=== PATIENT | female | born 1995 ===

== ENCOUNTER 2017-03-13 12:37 | Emergency (ER) | payer SELFPAY | END 2017-03-13 12:56 | disposition left against medical advice (07) | LOC: UCEAST 12:37 | DX: K31.9 Disease of stomach and duodenum, unspecified (principal); Z53.21 Procedure and treatment not carried out due to patient leaving prior to being seen by health care provider ==

== ENCOUNTER 2018-10-01 08:08 | Inpatient (IN) | payer MEDICAID ==
[2018-10-01] MEDS ORDERED: LORazepam INJ* 2 MG/ML 1 ML VIAL ONE (08:53)
--- NOTE | 2018-10-01 08:59 | ED ---
Psychiatric Complaint - HPI Summary HPI Summary: This patient is a 22 year old female presenting to [facility] with a chief complaint of altered mental status reported by her aunt and uncle accompanying her. They state that she is not acting her normal self. They state the patient is acting confused and not responding appropriately. They state the pt is fearful of demons. They also state that pt has not been sleeping. The patient is uncooperative in the ED and keeps asking how long she will be here. She is being seen in the conference room and refuses to enter the patient room in the main ED. She says "I want water here" in the waiting room and does not want to go to the patient room with water. She has ripped off her name alex multiple times. When explaining simple directives she states "What are you talking about?". Patient "wasn't ready" and resisted going to her room. The patient denies any medical or surgical Hx. Her aunt states she states she was talking non-stop last night, and states there was a demon and she was trying to get it out. She repeatedly was stating "I am not going to kill myself". She was referring to herself as "Us". Patient became agitated. Two nurses, two security members, an senior service technician, and Dr. Mancini all attempted to get pt to the ED room. Pt attempted to elope several times. Pt was aggressive and calling staff names. Pt was carried to the ED room, where she was medicated for her safety and staff's safety. Pt's aunt states the patient's mother has a Hx of schizophrenia but the patient has never had an episode before. Patient will be placed on 1:1 arm's reach watch. Patient is an elopement risk. LEVEL 5 Caveat: HPI Limited due to patient altered mental status. - History Of Current Complaint Chief Complaint: EDMentalHealth Hx Obtained From: Patient, Family/Manager Real Estate - aunt and uncle Onset/Duration: Gradual Onset Timing: Constant Severity Initially: Severe Severity Currently: Severe Character: Manic, Fearful, Anxious Aggravating Factor(s): Recent Stress - relationship break up Alleviating Factor(s): Nothing Associated Signs And Symptoms: Positive: Hostile - at times to staff, Confused, Hallucinating - seeing demons - Allergies/Home Medications Allergies/Adverse Reactions: Allergies Allergy/AdvReac Type Severity Reaction Status Date / Time No Known Allergies Allergy Verified 10/01/18 08:16 PMH/Surg Hx/FS Hx/Imm Hx Previously Healthy: Yes - Surgical History Surgical History: None Infectious Disease History: No Infectious Disease History: Denies: Traveled Outside the [place] in Last 30 Days - Family History Known Family History: Positive: Other - Schizophrenia, mother Negative: Cardiac Disease, Hypertension, Diabetes - Social History Alcohol Use: None Substance Use Type: Reports: None Smoking Status (MU): Never Smoked Tobacco - Additional Comments History Additional Comments: LEVEL 5 Caveat: PMH Limited due to patient altered mental status. Review of Systems Constitutional: Negative Cardiovascular: Negative Respiratory: Negative Gastrointestinal: Negative Positive: no symptoms reported Skin: Negative Neurological: Negative Positive: Other - agitated, asks repeated questions, attempts to elope, All Other Systems Reviewed And Are Negative: No - Comments Additional Review of Systems Comments: LEVEL 5 Caveat: ROS Limited due to patient altered mental status. Physical Exam - Summary Physical Exam Summary: Appearance: Well-appearing, no pain distress, well-nourished Skin: Warm, color reflects adequate perfusion, dry Head: Normal Head/Face inspection, atraumatic Eyes: Conjunctiva clear, pupils midpoint, EOMI, no nystagmus ENT: Normal inspection Neck: Supple, no nodes, no JVD Respiratory: Lungs clear, normal breath sounds, no respiratory distress Cardio: RRR, No murmur, pulses normal, brisk capillary refill Abdomen: Soft, nontender Bowel sounds: Present Musculoskeletal: Strength Intact/ROM intact, no calf tenderness, no edema. Psychological: Poor eye contact, asks repetitive questions. Neuro: Alert, muscle tone normal, no focal deficit, normal gait Triage Information Reviewed: Yes Vital Signs On Initial Exam: Initial Vitals Temp Pulse Resp BP Pulse Ox 99.0 F 100 16 130/88 99 10/01/18 08:10 10/01/18 08:10 10/01/18 08:10 10/01/18 08:10 10/01/18 08:10 Vital Signs Reviewed: Yes Completion Of Physical Exam Limited Due To: Altered Mental Status, Level 5 Diagnostics - Vital Signs Vital Signs Temp Pulse Resp BP Pulse Ox 10/01/18 08:10 99.0 F 100 16 130/88 99 - Laboratory Result Diagrams: 10/08/18 08:32 10/08/18 08:32 Lab Statement: Any lab studies that have been ordered have been reviewed, and results considered in the medical decision making process. Re-Evaluation - Re-Evaluation First Eval Re-Evaluation Time: 09:30 Change: Unchanged Comment: Pt given Geodon 20mg and Ativan 2mg IM for combative behavior, attempting to jump out of bed. Second Eval Re-Evaluation Time: 10:10 Change: Improved Comment: Pt sleeping and appears to be in no distress. 1:1 arm's reach watch remains in place. Course/Dx - Course Course Of Treatment: This patient is a 22 year old female presenting to [facility] with a chief complaint of altered mental status per her aunt and uncle. Pt hasn' t slept in days and is fearful of demons. Pt was disruptive, aggressive and uncooperative in the ED, requiring several staff members and Dr. Mancini to keep her safe, and keep her from eloping. Pt was given Geodon 20mg IM and Lorazepam 2mg IM and ultimately fell asleep. Mental health evaluation was completed by VIC Trujillo to the best of her ability, who discussed pt with Dr. Forrest. At 0959 papers signed for 39 admission, involutary, per Dr. Forrest with a diagnosis of mood disorder and acute psychosis. Note: for pt and staff safety, pt was taken directly to [facility] prior to labs being drawn, so the lab statement should read that "any labs that are resulted (not ordered) have been reviewed." In this young, otherwise healthy woman, no labs were considered necessary in order to medically clear her to go the the [facility]. - Differential Dx/Clinical Impression Differential Diagnosis/HQI/PQRI: Positive: Acute Psychosis, Bipolar Disorder, Schizophrenia Provider Diagnosis: Mood disorder, Acute psychosis - Physician Notifications Discussed Care Of Patient With: Sobeida Forrest - car Trujillo RN Instructed by Provider To: Admit As Inpatient - 9.39 - Critical Care Time Critical Care Time: 30-74 min - 45 minutes Discharge ED - Sign-Out/Discharge Documenting (check all that apply): Patient Departure - Admission to [facility] - Discharge Plan Condition: Improved Disposition: [place]IATRIC [place]AC[place] [place]illing Disposition and Condition Condition: IMPROVED Disposition: Psychiatric Facility [facility] [place] - Attestation Statements Document Initiated by Scribe: Yes Documenting Scribe: Alberto Samayoa Provider For Whom Scribe is Documenting (Include Credential): Diane Mancini MD Scribe Attestation: IAlberto, scribed for Diane Mancini MD on 11/01/18 at 2134. Scribe Documentation Reviewed: Yes Provider Attestation: The documentation as recorded by the [email or web address] amin accurately reflects the service I personally performed and the decisions made by me, Diane Mancini MD Status of Scribe Document: Viewed
[2018-10-01] MEDS ORDERED: LORazepam INJ* 2 MG/ML 1 ML VIAL IM ONE (09:03)
[2018-10-01] MEDS ORDERED: Ziprasidone IM INJ* 20 MG/ML VIAL IM ONE (09:03)
[2018-10-01] MEDS ORDERED: Sterile Water for Inj* 10 ML ONE (09:17)
[2018-10-01] MEDS ORDERED: Al Hydrox/Mg Hydrox/Simet LIQ* 30 ML UDC PO PRN (12:10)
[2018-10-01] MEDS ORDERED: D5W IVPB SCH ×2 (15:00)
[2018-10-01] MEDS ORDERED: POTASSIUM CHLORIDE TPN IVPB SCH ×2 (15:00)
[2018-10-01] MEDS ORDERED: 1/2 NS IVPB SCH ×2 (15:00)
--- NOTE | 2018-10-01 16:03 | HP ---
HISTORY AND PHYSICAL: DATE OF ADMISSION: 10/01/18 IDENTIFYING DATA: Antonia is a 22-year-old single female, unknown to us and [facility], was brought into the emergency room by her aunt and aunt's due to sudden change in her mental status. CHIEF COMPLAINT: "The patient is unable to verbalize anything due to deep sedation; however, she was extremely agitated, paranoid, and aggressive in the emergency room." HISTORY OF PRESENT ILLNESS: This 22-year-old female with no known history of treatment in the past c hugh to the emergency room accompanied by her aunt and uncle due to a sudden change in her mental stat us ranging from being confused, agitated to aggressive. At the time of evaluation, she was extremely sedated from her stat medication that she received in the emergency room, but the review of ED repor t indicates that the patient was acting confused on responding to some unseen stimuli. She was very fearful to come into the emergency room, in her room rather stayed outside in the waiting area. She was very fearful to go inside because of the demons in there. Her aunt and uncle also reported the s hugh thing that for the last 3 nights Antonia was not sleeping, rather fighting with the demons and tryi ng to get them out of the house. She was doing exactly the same thing in the emergency room. At one point, ED doctor had to give her 2 mg of lorazepam and 20 of Geodon IM to control her agitation and aggression. At this point, she is deeply sedated. We did try to get her vital signs, but she would n ot allow. Finally, the vital signs were taken, which appears to be low blood pressure. Her blood pr essure at this time is 83/58; pulse rate varies from 75 to 110, breathing shallow, but normal; temper ature 98.2; O2 sat 99% on room air. Hospitalist, Dr. Salazar, was called. He advised to repeat the v ital signs, which we did and did not have much difference except for her pulse rate went up. I also called the lab to see if they have the blood. They said they did not have the blood, so they are on their way to obtain blood and urine and other labs that were ordered in the emergency room. According to the patient's aunt and uncle, Antonia broke up with her boyfriend of 3 years and moved out of the a partment in the recent past and since then there was a change in her mental status. Rest of the hist ory is unavailable because the patient is unable to provide any history and there are no family membe rs available; however, collateral information from aunt and uncle indicates that a month ago Antonia sa id that she feels spirits around her and relatives as well. Other than that, there is not m uch of the psychiatric history. FAMILY HISTORY: Again, from collaterals is that the patient's mother has a history of schizophrenia and has been hospitalized for the same reason at [facility] for 3 months. She was als o admitted in other hospitals that we do not know. She was once hospitalized in [place] where she im migrated for 10 years. Antonia's father had anger management problem and marital discord when Antonia an d her younger sister were younger. The relationship has been estranged until recently when they bega n speaking again. PSYCHOSOCIAL HISTORY: The patient immigrated to [place] 10 years ago with her family. The patient a nd her sister were removed from their parents' house when they were younger. Per aunt, Antonia was [place] marg[place] with her and her , Davie and the sister, Stacia, resided with her biological father bechristina ore DSS removed them from the house due to neglect from the mother due to her own mental health probl ems. 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 IMPRESSION AND PLAN: Again, these are all collateral information and her attending psychiatrist or s omeone on the team will have to obtain detailed information when the patient is capable of providing it. At this time, my decision is to continue her in the inpatient setting, continue her on one-on-on e status and keep working with the hospitalist to tackle her low blood pressure, which could be relat ed to stat medication in the emergency room. Rest of the treatment will be on as-needed basis and wi ll be deferred to her assigned attending on the unit. In the meantime, we will provide her with supp ortive milieu, individual, and group therapy as she tolerates. Her code status will remain full. [id number]/CPS #: [id number]
[2018-10-02] MEDS: Vitamin THERAPEUTIC TAB PO SCH (08:53)
[2018-10-02 10:21] LABS: Urine Appearance Clear; Urine Bacteria Absent (Absent); Urine Bilirubin Negative (Negative); Urine Blood 1+ (Negative); Urine Color Yellow; Urine Glucose Negative (Negative); Urine Ketones Trace (Negative); Urine Nitrite Negative (Negative); Urine Protein Negative (Negative); Urine Red Blood Cell Absent (Absent); Urine Specific Gravity 1.011 (1.010-1.030); Urine Squamous Epithelial Cell Present (Absent); Urine Urobilinogen Negative (Negative); Urine White Blood Cell Absent (Absent)
[2018-10-02 10:29] LABS: Urine Benzodiazepine Screen None Detected (None Detect); Urine Opiates Screen None Detected (None Detect)
[2018-10-02] MEDS ORDERED: QUEtiapine TAB* 25 MG PO ONE (18:00)
[2018-10-02] MEDS ORDERED: QUEtiapine TAB* 25 MG PO SCH (21:00)
[2018-10-03] MEDS ORDERED: OLANzapine TAB* 5 MG PO ONE ×2 (08:51→09:57)
[2018-10-03] MEDS ORDERED: OLANzapine TAB* 5 MG ONE (09:44)
[2018-10-03] MEDS: Vitamin THERAPEUTIC TAB PO SCH (10:29)
--- NOTE | 2018-10-03 16:14 | PN ---
Subjective - Subjective Date of Service: 10/03/18 Service Type: 08230 Hosp care 35 min high complexity Subjective: This is the first time I meet with Antonia. She is psychotic: hallucinating words in her head that she is not sure if she really spoke and is delusional, believing that she will , that we might kill her, and that she is behaving like a bad person. She, this morning, was terrified and anxious. She stayed in her room for the most part and paced around it bouncing a ball. She was given Zyprexa 5 mg x2 and didn't sleep, but did calm down and felt more "like myself. " Tonia Herzog, W[employer]IT [employer] CONDITIONING [employer]CH[employer]IC, and I meet with Antonia and two of her aunts. Antonia paces around when she can no longer tolerate talking. She skips at times and then returns to the table. She writes notes to herself in her book that are affirming and supportive, although the statements are rambling; nevertheless, they are positive and she recognizes them to be so. Her aunts are quite upset as this is not how Antonia typically behaves. They do not know how long she has been decompensating, but notes from her journal indicate that it's been at least a month. Her mother, Mercedez, also visited and was concerned for her wellbeing. Objective - General Observations Appearance: Disheveled Appears Stated Age: Yes Stature: WNL Posture: WNL Eye Contact: Intermittent Behavior/Activity: Accelerated, Peculiar, Impulsive, Agitated - Interaction Observations Attitude Towards Examiner: Confused, Mistrustful Stated Mood: Dysphoric, Anxious Affect: Labile Speech Pattern/Tone: Clear Thought Process: Disorganized, Tangential, Filght of Ideas Perception: WNL Thought Content: Preoccupation/Ruminations, Paranoid Hallucination Type: Auditory Delusion Type: Thought Broadcasting, Reference, Somatic - Cognitive Function Orientation: Person, Place, Time Level of Consciousness: Awake, Alert Cognition: Impaired Attention/Concentration, Impaired Ability to Abstract Estimated Intelligence: Normal Insight: Difficulty Acknowledging Presence of Psyciatric Problems Judgment Within Normal Limits: No Ability to Make Reasonable Decisions: Serverely Impaired - Medication Compliance Cooperative with Inpatient Medication Regimen: Yes - Group Participation Participates in Group Activities: Partial Assessment - Assessment Merits Inpatient Hospitalization: For Immediate Safety Clinical Impression: Antonia is a 22-year-old single white woman with no history of psychiatric problems but is clearly psychotic at this time who came to the hospital after presenting to her aunt and uncle in a fashion she never has before: speaking nonsense and screaming "negative" things. Plan - Plan Treatment Plan: Name: ANTONIA VARGAS Birthdate: 1995 [id number] We will start Zyprexa for now and potentially transition her to Abilify injection in the future. The priority now is to get her rest and reduce the psychosis. We will continue to monitor her mood and behavior and work with her family. Continued Medication Management: Different Medication Medications: Current Medications Acetaminophen (Tylenol Tab*) 650 mg PO Q4H PRN PRN Reason: PAIN or TEMP > 101 F Al Hydrox/Mg Hydrox/Simethicone (Maalox Plus*) 30 ml PO Q4H PRN PRN Reason: INDIGESTION Multivitamins (Theragran Tab*) 1 tab PO DAILY [facility] Last Admin: 10/03/18 10:29 Dose: Not Given Olanzapine (Zyprexa Tab*) 10 mg PO BEDTIME [facility] Olanzapine (Zyprexa Tab*) 5 mg PO Q6H [facility] - Discharge Plan Discharge Plan: Outpatient Follow Up
[2018-10-03] MEDS: OLANzapine TAB* 10 MG PO SCH (21:36)
[2018-10-04] MEDS: OLANzapine TAB* 10 MG PO SCH ×2 (03:34→22:00)
[2018-10-04] MEDS: OLANzapine TAB* 5 MG PO SCH ×4 (03:36→11:05)
[2018-10-04] MEDS: Vitamin THERAPEUTIC TAB PO SCH (08:38)
--- NOTE | 2018-10-04 15:12 | PN ---
Subjective - Subjective Date of Service: 10/04/18 Service Type: 79277 Hosp care 25 min moderate complexity Subjective: Antonia has been in better control today, not talking about demons and seemingly free of hallucinations. She is no longer willing to take medication, however, and that is problematic. Antonia has responded well to Zyprexa. She has taken 3-4 doses of it in either 5 or 10 mg doses. She did sleep 7 hours last night and awoke in a more cheerful mood. She is manic, not being able to sit for long periods of time and skipping around the room from time to time. She has no insight into the bizarre nature of her behavior or beliefs and is defensive when discussing treatment. She is not enthusiastic about being in the hospital, stating that she doesn't feel safe here, while at the same time not being motivated enough by potential discharge to take ordered medications. Treatment over objection must be considered. Objective - General Observations Appearance: Disheveled Appears Stated Age: Yes Stature: WNL Posture: WNL Eye Contact: Intense Behavior/Activity: Accelerated, Peculiar, Impulsive - Interaction Observations Attitude Towards Examiner: Confused, Mistrustful Affect: Labile Speech Pattern/Tone: Clear, Rambling Thought Process: Disorganized, Circumstantial Perception: WNL Thought Content: Preoccupation/Ruminations, Paranoid Hallucination Type: Denies, Auditory Delusion Type: Denies, Persecution, Somatic - Cognitive Function Orientation: Person, Place, Time Level of Consciousness: Awake, Alert, Appropriate Cognition: Impaired Cognition, Impaired Attention/Concentration Estimated Intelligence: Normal Insight: Difficulty Acknowledging Presence of Psyciatric Problems Judgment Within Normal Limits: No Ability to Make Reasonable Decisions: Serverely Impaired - Medication Compliance Cooperative with Inpatient Medication Regimen: No - Group Participation Participates in Group Activities: Partial Assessment - Assessment Merits Inpatient Hospitalization: For Immediate Safety Clinical Impression: Antonia is a 22-year-old single white woman with no history of psychiatric problems but is clearly psychotic at this time who came to the hospital after presenting to her aunt and uncle in a fashion she never has before: speaking nonsense and screaming "negative" things. Plan - Plan Treatment Plan: Name: ANTONIA VARGAS Birthdate: 1995 [id number] We will start Zyprexa for now and potentially transition her to Abilify injection in the future. The priority now is to get her rest and reduce the psychosis. We will continue to monitor her mood and behavior and work with her family. 10/04/18 Increase dose of PRN Zyprexa and add Ativan to PRNs. Continued Medication Management: Different Medication Medications: Current Medications Acetaminophen (Tylenol Tab*) 650 mg PO Q4H PRN PRN Reason: PAIN or TEMP > 101 F Al Hydrox/Mg Hydrox/Simethicone (Maalox Plus*) 30 ml PO Q4H PRN PRN Reason: INDIGESTION Lorazepam (Ativan Tab(*)) 1 mg PO Q4H PRN PRN Reason: ANXIETY Multivitamins (Theragran Tab*) 1 tab PO DAILY [facility] Last Admin: 10/04/18 08:38 Dose: Not Given Olanzapine (Zyprexa Tab*) 10 mg PO BEDTIME [facility] Last Admin: 10/04/18 03:34 Dose: Not Given Olanzapine (Zyprexa Tab*) 10 mg PO Q6H PRN PRN Reason: AGITATION/ANXIETY
[2018-10-05] MEDS: Vitamin THERAPEUTIC TAB PO SCH (08:20)
[2018-10-05] MEDS: OLANzapine TAB* 10 MG PO PRN ×2 (09:50→18:47)
--- NOTE | 2018-10-05 14:58 | PN ---
Subjective - Subjective Date of Service: 10/05/18 Service Type: 65915 Hosp care 25 min moderate complexity Subjective: Antonia was unable to engage in any productive conversation today. She repeated herself over and over and tried to decide if she had sexually assaulted herself. She is unable to comprehend answers to her repetitive questions. She did receive PRN Zyprexa and a few hours later went to sleep. She continues to require constant observation. This morning, she went from laughing and skipping to sobbing loudly and curling into a position. She requires nearly constant reassurances. We are pursuing treatment over objection and changing her status to 2PC. Objective - General Observations Appearance: Disheveled Appears Stated Age: Yes Stature: WNL Posture: WNL Eye Contact: Intense Behavior/Activity: Peculiar, Impulsive, Agitated - Interaction Observations Attitude Towards Examiner: Anxious, Confused, Mistrustful Stated Mood: Dysphoric, Anxious Affect: Labile Speech Pattern/Tone: Clear, Rambling, Excessive, Pressured, Perseverating, Loud Volume Thought Process: Incoherent, Disorganized, Tangential, Racing Perception: WNL Thought Content: Paranoid, Phobic Thought Process: Lethality: Paranoid Ideation Hallucination Type: Auditory Delusion Type: Persecution, Reference - Cognitive Function Orientation: A&O x 4, Person, Place, Time, Situation Level of Consciousness: Awake, Alert Cognition: Impaired Cognition, Impaired Attention/Concentration Estimated Intelligence: Normal Insight: Difficulty Acknowledging Presence of Psyciatric Problems Judgment Within Normal Limits: No Ability to Make Reasonable Decisions: Serverely Impaired - Medication Compliance Cooperative with Inpatient Medication Regimen: No - Group Participation Participates in Group Activities: No Assessment - Assessment Merits Inpatient Hospitalization: For Immediate Safety Clinical Impression: Antonia is a 22-year-old single white woman with no history of psychiatric problems but is clearly psychotic at this time who came to the hospital after presenting to her aunt and uncle in a fashion she never has before: speaking nonsense and screaming "negative" things. Plan - Plan Treatment Plan: Name: ANTONIA VARGAS Birthdate: 1995 [id number] We will start Zyprexa for now and potentially transition her to Abilify injection in the future. The priority now is to get her rest and reduce the psychosis. We will continue to monitor her mood and behavior and work with her family. 10/04/18 Increase dose of PRN Zyprexa and add Ativan to PRNs. 10/05/18 Pursue treatment over objection and 2PC status Continued Medication Management: Different Medication Medications: Current Medications Acetaminophen (Tylenol Tab*) 650 mg PO Q4H PRN PRN Reason: PAIN or TEMP > 101 F Al Hydrox/Mg Hydrox/Simethicone (Maalox Plus*) 30 ml PO Q4H PRN PRN Reason: INDIGESTION Lorazepam (Ativan Tab(*)) 1 mg PO Q4H PRN PRN Reason: ANXIETY Multivitamins (Theragran Tab*) 1 tab PO DAILY [facility] Last Admin: 10/05/18 08:20 Dose: Not Given Olanzapine (Zyprexa Tab*) 10 mg PO BEDTIME [facility] Last Admin: 10/04/18 22:00 Dose: Not Given Olanzapine (Zyprexa Tab*) 10 mg PO Q6H PRN PRN Reason: AGITATION/ANXIETY Last Admin: 10/05/18 09:50 Dose: 10 mg
[2018-10-05] MEDS: LORazepam TAB(*) 1 MG PO PRN (16:01)
[2018-10-05] MEDS: OLANzapine TAB* 10 MG PO SCH (23:00)
[2018-10-06] MEDS: LORazepam TAB(*) 1 MG PO PRN (06:40)
[2018-10-06] MEDS: Vitamin THERAPEUTIC TAB PO SCH (10:28)
[2018-10-06] MEDS: OLANzapine TAB* 10 MG PO PRN ×2 (10:53→18:19)
--- NOTE | 2018-10-06 16:31 | PN ---
Subjective - Subjective Date of Service: 10/06/18 Service Type: [id number] Hosp care 15 min low complexity Subjective: Antonia spent most of today sleeping. While in many cases this would be unreasonable, Antonia had not slept in 36 hours and was disorganized and severely distressed due to not being able to believe she was safe in the hospital. Her resting will be helpful to her improving. Treatment over objection hearing has been scheduled for 10/07/18 at 10:30. Objective - General Observations Appearance: Disheveled Appears Stated Age: Yes Stature: WNL Posture: WNL Behavior/Activity: WNL - Cognitive Function Level of Consciousness: Drowsy Estimated Intelligence: Normal Insight: Difficulty Acknowledging Presence of Psyciatric Problems Assessment - Assessment Merits Inpatient Hospitalization: For Immediate Safety, Diagnosis Determination Clinical Impression: Antonia is a 22-year-old single white woman with no history of psychiatric problems but is clearly psychotic at this time who came to the hospital after presenting to her aunt and uncle in a fashion she never has before: speaking nonsense and screaming "negative" things. She has remained disorganized and unable to be reassured. Plan - Plan Treatment Plan: Name: ANTONIA VARGAS Birthdate: 1995 [id number] We will start Zyprexa for now and potentially transition her to Abilify injection in the future. The priority now is to get her rest and reduce the psychosis. We will continue to monitor her mood and behavior and work with her family. 10/04/18 Increase dose of PRN Zyprexa and add Ativan to PRNs. 10/05/18 Pursue treatment over objection and 2PC status 10/06/18 Add Abilify to morning medications in plan to inject with Aristada should treatment over objection be obtained. Medications: Current Medications Acetaminophen (Tylenol Tab*) 650 mg PO Q4H PRN PRN Reason: PAIN or TEMP > 101 F Al Hydrox/Mg Hydrox/Simethicone (Maalox Plus*) 30 ml PO Q4H PRN PRN Reason: INDIGESTION Aripiprazole (Abilify Tab*) 5 mg PO DAILY [facility] Lorazepam (Ativan Tab(*)) 1 mg PO Q4H PRN PRN Reason: ANXIETY Last Admin: 10/06/18 06:40 Dose: 1 mg Multivitamins (Theragran Tab*) 1 tab PO DAILY ROSALVA Last Admin: 10/06/18 10:28 Dose: Not Given Olanzapine (Zyprexa Tab*) 10 mg PO BEDTIME ROSALVA Last Admin: 10/05/18 23:00 Dose: Not Given Olanzapine (Zyprexa Tab*) 10 mg PO Q6H PRN PRN Reason: AGITATION/ANXIETY Last Admin: 10/06/18 10:53 Dose: 10 mg
[2018-10-06] MEDS: OLANzapine TAB* 10 MG PO SCH (21:12)
[2018-10-07] MEDS: Vitamin THERAPEUTIC TAB PO SCH (08:23)
[2018-10-07] MEDS ORDERED: ARIPiprazole TAB* 5 MG PO SCH (09:00)
--- NOTE | 2018-10-07 19:23 | PN ---
Subjective - Subjective Date of Service: 10/07/18 Service Type: [id number] Hosp care 15 min low complexity Subjective: Antonia's case went to the court today and the hospital won the right to treatment over objection. Antonia did not attend court. Antonia remaiined difficult to console and she was not able to be convinced that she would be safe in the hospital. She did advocate to be released. She remains disorganized and continues to require close monitoring and near constant reassurance. Objective - General Observations Appearance: Disheveled Appears Stated Age: Yes Stature: WNL Posture: WNL Eye Contact: Intense Behavior/Activity: Peculiar, Impulsive, Agitated - Interaction Observations Attitude Towards Examiner: Anxious, Confused Stated Mood: Dysphoric, Anxious Affect: Labile Speech Pattern/Tone: Clear Thought Process: Disorganized Perception: WNL Thought Content: Paranoid Thought Process: Lethality: Paranoid Ideation Hallucination Type: Auditory Delusion Type: Persecution - Cognitive Function Orientation: Person, Place, Time Level of Consciousness: Awake, Alert Cognition: Impaired Attention/Concentration Estimated Intelligence: Normal Insight: Difficulty Acknowledging Presence of Psyciatric Problems Judgment Within Normal Limits: Yes Ability to Make Reasonable Decisions: Serverely Impaired - Medication Compliance Cooperative with Inpatient Medication Regimen: Partial - Group Participation Participates in Group Activities: Partial Assessment - Assessment Merits Inpatient Hospitalization: For Immediate Safety Clinical Impression: Antonia is a 22-year-old single white woman with no history of psychiatric problems but is clearly psychotic at this time who came to the hospital after presenting to her aunt and uncle in a fashion she never has before: speaking nonsense and screaming "negative" things. She has remained disorganized and unable to be reassured. Plan - Plan Treatment Plan: Name: ANTONIA VARGAS Birthdate: 1995 [id number] We will start Zyprexa for now and potentially transition her to Abilify injection in the future. The priority now is to get her rest and reduce the psychosis. We will continue to monitor her mood and behavior and work with her family. 10/04/18 Increase dose of PRN Zyprexa and add Ativan to PRNs. 10/05/18 Pursue treatment over objection and 2PC status 10/06/18 Add Abilify to morning medications in plan to inject with Aristada should treatment over objection be obtained. 10/07/18 Use TOO to administer Initio, Aristada 882, and 30 mg of aripiprazole. Obtain test before administration of aripiprazole products. Continued Medication Management: Different Medication Medications: Current Medications Acetaminophen (Tylenol Tab*) 650 mg PO Q4H PRN PRN Reason: PAIN or TEMP > 101 F Al Hydrox/Mg Hydrox/Simethicone (Maalox Plus*) 30 ml PO Q4H PRN PRN Reason: INDIGESTION Lorazepam (Ativan Tab(*)) 1 mg PO Q4H PRN PRN Reason: ANXIETY Last Admin: 10/06/18 06:40 Dose: 1 mg Multivitamins (Theragran Tab*) 1 tab PO DAILY ROSALVA Last Admin: 10/07/18 08:23 Dose: Not Given Olanzapine (Zyprexa Tab*) 10 mg PO Q6H PRN PRN Reason: AGITATION/ANXIETY Last Admin: 10/06/18 18:19 Dose: 10 mg
[2018-10-08 08:39] LABS: ABS Basophils 0.1 10^3/ul (0-0.2); ABS Eosinophils 0.1 10^3/ul (0-0.6); ABS Lymphocytes 1.8 10^3/ul (1.0-4.8); ABS Monocytes 0.3 10^3/ul (0-0.8); ABS Neutrophils 6.6 10^3/ul (1.5-7.7); Eosinophil % 1.1 %; Hematocrit 40 % (35-47); Hemoglobin 13.2 g/dL (12.0-16.0); Lymphocyte % 20.3 %; Mean Corpuscular HGB Conc 33 g/dL (31-36); Mean Corpuscular Hemoglobin 27 pg (27-31); Mean Corpuscular Volume 81 fL (80-97); Mean Platelet Volume 8.8 fL (7.4-10.4); Platelet Count 312 10^3/uL (150-450); Red Blood Count 4.94 10^6 /uL (3.70-4.87); Red Cell Distribution Width 15 % (10-15); White Blood Count 8.9 10^3/uL (3.5-10.8)
[2018-10-08 08:56] LABS: ALT 13 U/L (7-52); AST 15 U/L (13-39); Albumin 4.5 g/dL (3.2-5.2); Albumin/Globulin Ratio 1.6 (1-3); Alkaline Phosphatase 56 U/L (34-104); Anion Gap 7 mmol/L (2-11); BUN/Creatinine Ratio 16.4 (8-20); Blood Urea Nitrogen 12 mg/dL (6-24); CO2 Carbon Dioxide 25 mmol/L (22-32); Calcium 9.4 mg/dL (8.6-10.3); Chloride 107 mmol/L (101-111); Cholesterol 133 mg/dL; EGFR Non-African American 101.6 (>60); Globulin 2.8 g/dL (2-4); Glucose 103 mg/dL (70-100); LDL Cholesterol 58 mg/dL; Potassium 3.9 mmol/L (3.5-5.0); Sodium 139 mmol/L (135-145); Total Protein 7.3 g/dL (6.4-8.9); Triglycerides 51 mg/dL
[2018-10-08 09:02] LABS: HCG Pregnancy < 0.60 mIU/mL
[2018-10-08 09:29] LABS: TSH (Thyroid Stimulating Horm) 0.81 mcIU/mL (0.34-5.60)
[2018-10-08] MEDS: ARIPiprazole TAB* 15 MG PO ONE ×2 (11:49→13:06)
--- NOTE | 2018-10-08 13:15 | PROCNOTE ---
- Assessment for Patient Restraint Evaluation of the Patient's Immediate Situation: ON-CALL PSYCHIATRIST NOTE Called to evaluate this patient was manually restrained from 11:20 to 11:29AM for court-ordered IM medications for treatment of psychosis. Prior to the administration of IM meds, she was intrusive, disruptive to the milieu, ignored many verbal attempts to redirect her, refused court-ordered PO meds, became increasingly agitated and yelled delusional comments to peers. Patient's Reaction to Intervention: Patient is out in the milieu, remains disorganized in her thinking but he is calmer, in no acute medical distress, her vital signs are stable. Patient's Medication and Behavioral Condition: Aristada initio 675 mg IM x 1 Aristada 882 mg IM x1 Aripiprazole 30 mg PO x 1 Zyprexa 10mg IM for psychotic agitation. Evaluate Need for Continued Restraint: Terminate
[2018-10-08] MEDS: Vitamin THERAPEUTIC TAB PO SCH (14:18)
[2018-10-08] MEDS: OLANzapine TAB* 10 MG PO PRN (15:54)
[2018-10-08] MEDS: LORazepam TAB(*) 1 MG PO PRN (17:59)
[2018-10-09] MEDS: LORazepam TAB(*) 1 MG PO PRN ×2 (07:38→18:42)
[2018-10-09] MEDS: Vitamin THERAPEUTIC TAB PO SCH (08:12)
[2018-10-09] MEDS: Acetaminophen TAB* 325 MG PO PRN ×2 (11:06→21:27)
[2018-10-10] MEDS: Vitamin THERAPEUTIC TAB PO SCH (09:28)
[2018-10-10] MEDS: LORazepam TAB(*) 1 MG PO PRN (11:59)
--- NOTE | 2018-10-10 15:18 | PN ---
Subjective - Subjective Date of Service: 10/10/18 Service Type: [id number] Hosp care 25 min moderate complexity Subjective: Antonia states she's feeling much better. She acknowledges that she is emotional and stressed. She is reminded that she is emotionally labile and frightened and that is the sign of illness. She advocates for herself that she wants to go outside. She also mentions, however, that she has a sense that someone in the hospital is trying to kill her. She requests someone to reassure her constantly that she's safe. She would like to have a 1:1 again, but that is not practical or appropriate. She is improving, although not as quickly as would be hoped. Objective - General Observations Appearance: Disheveled Appears Stated Age: Yes Stature: WNL Posture: WNL Eye Contact: Intense Behavior/Activity: Peculiar - Interaction Observations Attitude Towards Examiner: Cooperative, Anxious, Confused Stated Mood: Dysphoric, Anxious Affect: Labile Speech Pattern/Tone: Clear, Rambling, Excessive Thought Process: Disorganized Perception: WNL Thought Content: Preoccupation/Ruminations, Paranoid Hallucination Type: Denies Delusion Type: Persecution - Cognitive Function Orientation: A&O x 4 Level of Consciousness: Awake, Alert, Appropriate Cognition: Impaired Cognition, Impaired Attention/Concentration Estimated Intelligence: Normal Insight: Difficulty Acknowledging Presence of Psyciatric Problems Judgment Within Normal Limits: No Ability to Make Reasonable Decisions: Moderately Impaired - Medication Compliance Cooperative with Inpatient Medication Regimen: Yes - Group Participation Participates in Group Activities: Partial Assessment - Assessment Merits Inpatient Hospitalization: For Immediate Safety Clinical Impression: Antonia is a 22-year-old single white woman with no history of psychiatric problems but is clearly psychotic at this time who came to the hospital after presenting to her aunt and uncle in a fashion she never has before: speaking nonsense and screaming "negative" things. She has remained disorganized and unable to be reassured. Plan - Plan Treatment Plan: Name: ANTONIA VARGAS Birthdate: 1995 [id number] We will start Zyprexa for now and potentially transition her to Abilify injection in the future. The priority now is to get her rest and reduce the psychosis. We will continue to monitor her mood and behavior and work with her family. 10/04/18 Increase dose of PRN Zyprexa and add Ativan to PRNs. 10/05/18 Pursue treatment over objection and 2PC status 10/06/18 Add Abilify to morning medications in plan to inject with Aristada should treatment over objection be obtained. 10/07/18 Use TOO to administer Initio, Aristada 882, and 30 mg of aripiprazole. Obtain test before administration of aripiprazole products. 10/10/18 Aristada Initio, 882, and 30 mg of aripiprazole oral were administered over the weekend. We are now waiting for improvement. Continued Medication Management: Different Medication Medications: Current Medications Acetaminophen (Tylenol Tab*) 650 mg PO Q4H PRN PRN Reason: PAIN or TEMP > 101 F Last Admin: 10/09/18 21:27 Dose: 650 mg Al Hydrox/Mg Hydrox/Simethicone (Maalox Plus*) 30 ml PO Q4H PRN PRN Reason: INDIGESTION Lorazepam (Ativan Tab(*)) 1 mg PO Q4H PRN PRN Reason: ANXIETY Last Admin: 10/10/18 11:59 Dose: 1 mg Multivitamins (Theragran Tab*) 1 tab PO DAILY ROSALVA Last Admin: 10/10/18 09:28 Dose: Not Given Olanzapine (Zyprexa Tab*) 10 mg PO Q6H PRN PRN Reason: AGITATION/ANXIETY Last Admin: 10/08/18 15:54 Dose: 10 mg
[2018-10-10] MEDS: LORazepam TAB(*) 1 MG PO SCH ×2 (17:17→22:21)
[2018-10-11] MEDS: LORazepam TAB(*) 1 MG PO SCH ×4 (08:14→22:38)
[2018-10-11] MEDS: Vitamin THERAPEUTIC TAB PO SCH (08:14)
[2018-10-12] MEDS: Vitamin THERAPEUTIC TAB PO SCH (09:24)
[2018-10-12] MEDS: LORazepam TAB(*) 1 MG PO SCH (09:24)
[2018-10-13] MEDS: Vitamin THERAPEUTIC TAB PO SCH (10:52)
[2018-10-13] MEDS: OLANzapine TAB* 10 MG PO PRN (13:08)
[2018-10-13] MEDS: OLANzapine TAB* 10 MG PO SCH ×2 (14:59→21:01)
[2018-10-13] MEDS ORDERED: OLANzapine TAB*ODT* 5 MG PO PRN (16:06)
[2018-10-13] MEDS ORDERED: LORazepam TAB(*) 1 MG PO PRN (16:22)
[2018-10-13] MEDS: Docusate CAP* 100 MG PO SCH (21:00)
[2018-10-14] MEDS: OLANzapine TAB* 10 MG PO SCH (08:53)
[2018-10-14] MEDS: Docusate CAP* 100 MG PO SCH ×2 (08:53→21:43)
[2018-10-14] MEDS: Vitamin THERAPEUTIC TAB PO SCH (08:53)
[2018-10-14] MEDS: OLANzapine TAB*ODT* 10 MG TAB PO SCH ×2 (10:32→21:43)
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
[2018-10-14] MEDS ORDERED: OLANzapine TAB*ODT* 10 MG TAB PO SCH (21:00)
[2018-10-15] MEDS: OLANzapine TAB*ODT* 10 MG TAB PO SCH ×2 (09:01→20:48)
[2018-10-15] MEDS: Docusate CAP* 100 MG PO SCH ×2 (09:02→20:48)
[2018-10-15] MEDS: Vitamin THERAPEUTIC TAB PO SCH (09:02)
[2018-10-15] MEDS: Acetaminophen TAB* 325 MG PO PRN (13:25)
[2018-10-16] MEDS: OLANzapine TAB*ODT* 10 MG TAB PO SCH ×2 (09:08→20:40)
[2018-10-16] MEDS: Vitamin THERAPEUTIC TAB PO SCH (09:09)
[2018-10-16] MEDS: Docusate CAP* 100 MG PO SCH ×3 (09:09→20:42)
[2018-10-17] MEDS: OLANzapine TAB*ODT* 10 MG TAB PO SCH ×2 (08:24→20:49)
[2018-10-17] MEDS: Vitamin THERAPEUTIC TAB PO SCH (08:25)
[2018-10-17] MEDS: Docusate CAP* 100 MG PO SCH ×2 (08:25→20:49)
--- NOTE | 2018-10-17 16:11 | PN ---
Subjective - Subjective Date of Service: 10/17/18 Service Type: [id number] Hosp care 35 min high complexity Subjective: I spoke at length with Antonia today. She has improved significantly since Wednesday , but it is becoming clear that she will not be continuing her medications outpatient as they stand, as she does not like Zyprexa and states it makes her feel tired and bloated and hungry. Further, she feels like the hospital has betrayed her and that the staff are not trustworthy. She continues with psychotically disordered thoughts. Objective - General Observations Appearance: Disheveled Appears Stated Age: Yes Stature: WNL Posture: WNL Eye Contact: Average, Intense Behavior/Activity: Peculiar - Interaction Observations Attitude Towards Examiner: Cooperative, Anxious Stated Mood: Dysphoric Affect: Labile Speech Pattern/Tone: Clear Thought Process: Disorganized Perception: WNL Thought Content: Preoccupation/Ruminations, Phobic Hallucination Type: None Delusion Type: Persecution - Cognitive Function Orientation: A&O x 4 Level of Consciousness: Awake, Alert, Appropriate Cognition: Impaired Ability to Abstract Estimated Intelligence: Normal Insight: Difficulty Acknowledging Presence of Psyciatric Problems Judgment Within Normal Limits: No Ability to Make Reasonable Decisions: Moderately Impaired - Medication Compliance Cooperative with Inpatient Medication Regimen: Yes - Group Participation Participates in Group Activities: Partial Assessment - Assessment Merits Inpatient Hospitalization: For Immediate Safety Clinical Impression: Antonia is a 22-year-old single white woman with no history of psychiatric problems but is clearly psychotic at this time who came to the hospital after presenting to her aunt and uncle in a fashion she never has before: speaking nonsense and screaming "negative" things. She has remained disorganized and unable to be reassured. Plan - Plan Treatment Plan: Name: ANTONIA VARGAS Birthdate: 1995 [id number] We will start Zyprexa for now and potentially transition her to Abilify injection in the future. The priority now is to get her rest and reduce the psychosis. We will continue to monitor her mood and behavior and work with her family. 10/04/18 Increase dose of PRN Zyprexa and add Ativan to PRNs. 10/05/18 Pursue treatment over objection and 2PC status 10/06/18 Add Abilify to morning medications in plan to inject with Aristada should treatment over objection be obtained. 10/07/18 Use TOO to administer Initio, Aristada 882, and 30 mg of aripiprazole. Obtain test before administration of aripiprazole products. 10/10/18 Aristada Initio, 882, and 30 mg of aripiprazole oral were administered over the weekend. We are now waiting for improvement. 10/14/18 As Antonia has improved at a very slow and incomplete pace, we began Zyprexa 10 mg BID orally. She is beginning to improve more rapidly. Antonia is eager to leave and we have targeted a discharge date of . 10/17/18 The discharge date of is less likely as Antonia has made it clear that she will probably not be taking Zyprexa outpatient. We are switching to Latuda today and will phase out Zyprexa. Continued Medication Management: Different Medication Medications: Current Medications Acetaminophen (Tylenol Tab*) 650 mg PO Q4H PRN PRN Reason: PAIN or TEMP > 101 F Last Admin: 10/15/18 13:25 Dose: 650 mg Al Hydrox/Mg Hydrox/Simethicone (Maalox Plus*) 30 ml PO Q4H PRN PRN Reason: INDIGESTION Docusate Sodium (Colace Cap*) 100 mg PO BID [facility] Last Admin: 10/17/18 08:25 Dose: Not Given Lorazepam (Ativan Tab(*)) 2 mg PO Q4H PRN PRN Reason: Anxiety/agitation Lurasidone HCl (Latuda) 40 mg PO 1700 ROSALVA Multivitamins (Theragran Tab*) 1 tab PO DAILY [facility] Last Admin: 10/17/18 08:25 Dose: Not Given Olanzapine (Zyprexa * Tab Odt) 5 mg PO Q4H PRN PRN Reason: AGITATION/ANXIETY Last Admin: 10/13/18 16:12 Dose: 5 mg Olanzapine (Zyprexa *Odt*) 10 mg PO BEDTIME ROSALVA
[2018-10-17] MEDS ORDERED: Lurasidone(*) 40 MG TAB PO SCH (17:00)
[2018-10-18] MEDS: Vitamin THERAPEUTIC TAB PO SCH (08:12)
[2018-10-18] MEDS: Docusate CAP* 100 MG PO SCH ×2 (08:12→20:43)
[2018-10-18] MEDS ORDERED: Lurasidone(*) 80 MG TAB PO SCH (17:00)
[2018-10-18] MEDS: OLANzapine TAB*ODT* 10 MG TAB PO SCH (20:43)
[2018-10-19] MEDS: Vitamin THERAPEUTIC TAB PO SCH (11:00)
[2018-10-19] MEDS: Docusate CAP* 100 MG PO SCH ×2 (11:00→21:14)
[2018-10-19] MEDS ORDERED: hydrOXYzine HCL TAB* 25 MG PO PRN (13:32)
--- NOTE | 2018-10-19 15:29 | PN ---
Subjective - Subjective Date of Service: 10/19/18 Service Type: [id number] Hosp care 25 min moderate complexity Subjective: Larissa Salas, MARLY, and Antonia and I spoke about discharge with Antonia. Although she is better than she was, her family asserts that she is not at baseline. Additionally, the rapid switch to Latuda from Zyprexa was not an easy one for Antonia and she is refusing to take the 80 mg dose that was part of the titration up to 120 mg. Antonia is tearful as she realizes that she will not be leaving on . She is not able to return to [facility]'s house. She is considering going to her mother's apartment and sleeping on an air mattress until arrangements can be made for another housing situation. Objective - General Observations Appearance: Neat Appears Stated Age: Yes Stature: WNL Posture: WNL, Slumped Eye Contact: Average Behavior/Activity: WNL, Agitated - Interaction Observations Attitude Towards Examiner: Cooperative, Anxious, Confused, Defensive Stated Mood: Dysphoric, Anxious Affect: Labile Speech Pattern/Tone: Clear Thought Process: Coherent Perception: WNL Thought Content: WNL Thought Process: Lethality: Paranoid Ideation Hallucination Type: None Delusion Type: None - Cognitive Function Orientation: A&O x 4 Level of Consciousness: Awake, Alert, Appropriate Cognition: WNL Estimated Intelligence: Normal Insight: Difficulty Acknowledging Presence of Psyciatric Problems Judgment Within Normal Limits: No Ability to Make Reasonable Decisions: Mildly Impaired - Medication Compliance Cooperative with Inpatient Medication Regimen: Yes - Group Participation Participates in Group Activities: Partial Assessment - Assessment Merits Inpatient Hospitalization: For Immediate Safety, For Discharge Planning Inpatient 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 She has remained disorganized and unable to be reassured. Plan - Plan Treatment Plan: Name: ANTONIA VARGAS Birthdate: 1995 [id number] We will start Zyprexa for now and potentially transition her to Abilify injection in the future. The priority now is to get her rest and reduce the psychosis. We will continue to monitor her mood and behavior and work with her family. 10/04/18 Increase dose of PRN Zyprexa and add Ativan to PRNs. 10/05/18 Pursue treatment over objection and 2PC status 10/06/18 Add Abilify to morning medications in plan to inject with Aristada should treatment over objection be obtained. 10/07/18 Use TOO to administer Initio, Aristada 882, and 30 mg of aripiprazole. Obtain test before administration of aripiprazole products. 10/10/18 Aristada Initio, 882, and 30 mg of aripiprazole oral were administered over the weekend. We are now waiting for improvement. 10/14/18 As Antonia has improved at a very slow and incomplete pace, we began Zyprexa 10 mg BID orally. She is beginning to improve more rapidly. Antonia is eager to leave and we have targeted a discharge date of . 10/17/18 The discharge date of is less likely as Antonia has made it clear that she will probably not be taking Zyprexa outpatient. We are switching to Latuda today and will phase out Zyprexa. 10/19/18 The rapid transition to Latuda failed. She is now on Latuda 40 mg and Zyprexa 10 mg. She has now tried Risperdal, Zyprexa, Aristada and Initio, and Latuda. We will continue the current medication array until discharge and suggest a new plan to reduce the number of antipsychotics she is currently taking. Continued Medication Management: Different Medication Medications: Current Medications Acetaminophen (Tylenol Tab*) 650 mg PO Q4H PRN PRN Reason: PAIN or TEMP > 101 F Last Admin: 10/15/18 13:25 Dose: 650 mg Al Hydrox/Mg Hydrox/Simethicone (Maalox Plus*) 30 ml PO Q4H PRN PRN Reason: INDIGESTION Docusate Sodium (Colace Cap*) 100 mg PO BID [facility] Last Admin: 10/19/18 11:00 Dose: Not Given Hydroxyzine HCl (Atarax Tab*) 25 mg PO Q4H PRN PRN Reason: ANXIETY Lorazepam (Ativan Tab(*)) 2 mg PO Q4H PRN PRN Reason: Anxiety/agitation Lurasidone HCl (Latuda) 40 mg PO 1700 ROSALVA Multivitamins (Theragran Tab*) 1 tab PO DAILY [facility] Last Admin: 10/19/18 11:00 Dose: 1 tab Olanzapine (Zyprexa * Tab Odt) 5 mg PO Q4H PRN PRN Reason: AGITATION/ANXIETY Last Admin: 10/13/18 16:12 Dose: 5 mg Olanzapine (Zyprexa *Odt*) 10 mg PO BEDTIME [facility] Last Admin: 10/18/18 20:43 Dose: 10 mg - Discharge Plan Discharge Plan: Outpatient Follow Up Outpatient Program: [facility]
[2018-10-19] MEDS: Lurasidone(*) 40 MG TAB PO SCH (17:23)
[2018-10-19] MEDS: OLANzapine TAB*ODT* 10 MG TAB PO SCH (21:14)
[2018-10-20] MEDS: Vitamin THERAPEUTIC TAB PO SCH (09:51)
[2018-10-20] MEDS: Docusate CAP* 100 MG PO SCH ×2 (09:51→19:34)
[2018-10-20 09:55] VITALS: BP 100/55
--- NOTE | 2018-10-20 16:08 | PN ---
Subjective - Subjective Date of Service: 10/20/18 Service Type: 16930 Hosp care 35 min high complexity Subjective: Antonia is preparing for discharge. We had initially targeted the date of discharge for today, but for a variety of reasons the date was pushed to tomorrow. Antonia is improved and in control. She is no longer psychotic yet remains anxious. Conversation with her aunt Justin was difficult as Karsten did not agree with the discharge plan to send Antonia home to her mother's house. Discussion contiued for some time regarding the appropriateness of discharge, yet Antonia's condition warrants discharge and she risks decompensation with a continued stay. Objective - General Observations Appearance: Neat Appears Stated Age: Yes Stature: WNL Posture: WNL Eye Contact: Average Behavior/Activity: WNL - Interaction Observations Attitude Towards Examiner: Cooperative Stated Mood: Dysphoric Affect: Restricted Speech Pattern/Tone: Clear Thought Process: Coherent Perception: WNL Thought Content: WNL Hallucination Type: None Delusion Type: None - Cognitive Function Orientation: A&O x 4 Level of Consciousness: Awake, Alert, Appropriate Cognition: WNL, Impaired Attention/Concentration Estimated Intelligence: Normal Insight: Difficulty Acknowledging Presence of Psyciatric Problems Judgment Within Normal Limits: Yes Ability to Make Reasonable Decisions: Mildly Impaired - Medication Compliance Cooperative with Inpatient Medication Regimen: Yes - Group Participation Participates in Group Activities: Partial Assessment - Assessment Inpatient 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 She has remained disorganized and unable to be reassured. Plan - Plan Treatment Plan: Name: ANTONIA VARGAS Birthdate: 1995 [id number] We will start Zyprexa for now and potentially transition her to Abilify injection in the future. The priority now is to get her rest and reduce the psychosis. We will continue to monitor her mood and behavior and work with her family. 10/04/18 Increase dose of PRN Zyprexa and add Ativan to PRNs. 10/05/18 Pursue treatment over objection and 2PC status 10/06/18 Add Abilify to morning medications in plan to inject with Aristada should treatment over objection be obtained. 10/07/18 Use TOO to administer Initio, Aristada 882, and 30 mg of aripiprazole. Obtain test before administration of aripiprazole products. 10/10/18 Aristada Initio, 882, and 30 mg of aripiprazole oral were administered over the weekend. We are now waiting for improvement. 10/14/18 As Antonia has improved at a very slow and incomplete pace, we began Zyprexa 10 mg BID orally. She is beginning to improve more rapidly. Antonia is eager to leave and we have targeted a discharge date of . 10/17/18 The discharge date of is less likely as Antonia has made it clear that she will probably not be taking Zyprexa outpatient. We are switching to Latuda today and will phase out Zyprexa. 10/19/18 The rapid transition to Latuda failed. She is now on Latuda 40 mg and Zyprexa 10 mg. She has now tried Risperdal, Zyprexa, Aristada and Initio, and Latuda. We will continue the current medication array until discharge and suggest a new plan to reduce the number of antipsychotics she is currently taking. 10/20/18 Family meeting today was difficult, but discharge remains planned for tomorrow. Medications: Current Medications Acetaminophen (Tylenol Tab*) 650 mg PO Q4H PRN PRN Reason: PAIN or TEMP > 101 F Last Admin: 10/15/18 13:25 Dose: 650 mg Al Hydrox/Mg Hydrox/Simethicone (Maalox Plus*) 30 ml PO Q4H PRN PRN Reason: INDIGESTION Docusate Sodium (Colace Cap*) 100 mg PO BID ON LICENSE OF [facility] Last Admin: 10/20/18 09:51 Dose: 100 mg Hydroxyzine HCl (Atarax Tab*) 25 mg PO Q4H PRN PRN Reason: ANXIETY Last Admin: 10/20/18 09:53 Dose: 25 mg Lorazepam (Ativan Tab(*)) 2 mg PO Q4H PRN PRN Reason: Anxiety/agitation Lurasidone HCl (Latuda) 40 mg PO 1700 ON LICENSE OF [facility] Last Admin: 10/19/18 17:23 Dose: 40 mg Multivitamins (Theragran Tab*) 1 tab PO DAILY ON LICENSE OF [facility] Last Admin: 10/20/18 09:51 Dose: Not Given Olanzapine (Zyprexa * Tab Odt) 5 mg PO Q4H PRN PRN Reason: AGITATION/ANXIETY Last Admin: 10/13/18 16:12 Dose: 5 mg Olanzapine (Zyprexa *Odt*) 10 mg PO BEDTIME ON LICENSE OF [facility] Last Admin: 10/19/18 21:14 Dose: 10 mg
[2018-10-20] MEDS ORDERED: LORazepam TAB(*) 1 MG PO PRN (17:09)
[2018-10-20] MEDS: Lurasidone(*) 40 MG TAB PO SCH (17:30)
[2018-10-20] MEDS ORDERED: OLANzapine TAB* 10 MG PO SCH (21:00)
[2018-10-21] MEDS: Vitamin THERAPEUTIC TAB PO SCH (09:23)
[2018-10-21] MEDS: Docusate CAP* 100 MG PO SCH (09:23)
[2018-10-21] MEDS: Acetaminophen TAB* 325 MG PO PRN (13:38)
[2018-10-21] MEDS: Lurasidone(*) 40 MG TAB PO SCH (16:02)
--- NOTE | 2018-10-25 11:00 | DS ---
DISCHARGE SUMMARY: DATE OF ADMISSION: 10/01/18 DATE OF DISCHARGE: 10/21/18 PROVIDER: Polina Parrish NP in Psychiatry. SUPERVISING PHYSICIAN: Dr. Thomas Macedo.* (DICTATED BY POLINA PARRISH NP) DIAGNOSIS: Manic episode, severe with psychotic features. CONDITION AT THE TIME OF DISCHARGE: Improved, psychiatrically clear, more stable, participated in groups, was social with peers. Her family is agreeable to her discharge and she is eager for her discharge. She progressed well here psychiatrically. She tolerated new medications well. She agreed to an [place] under court order. She will be attending [facility]. MENTAL STATUS EXAM: At the time of discharge, Antonia is calm, cooperative, makes good eye contact. She is alert and oriented x4. Her grooming is good. Her speech pace is normal. Her thought processes are logical. She is not psychotic or delusional. She denies AH, VH, SI, and HI. Her insight and judgment are fair to good. She is willing to follow up and she is urged to see a therapist. DISCHARGE INSTRUCTIONS TO THE PATIENT: A. Medications: 1. Colace 100 mg b.i.d. 2. Hydroxyzine 25 mg q.4 hours p.r.n. anxiety. 3. Lorazepam 1 mg q.4 hours p.r.n. moderate anxiety. 4. Lurasidone 40 mg with a meal daily. 5. Olanzapine 10 mg at bedtime daily. 6. Olanzapine ODT 5 mg q.4 hours p.r.n. severe anxiety. 7. Therapeutic vitamin. B. Diet is regular. C. Activities are as tolerated. Antonia is a nonsmoker. There are no studies pending at the time of discharge. D. Followup care. She has appointments with [facility] on Wednesday10/24/18 at 10:45 with Cally Hutton with [facility]. A referral was made and the infant caregiver will be contacting her. She has consented to participating in the [facility] Cohort, which helps with assisting in following up with outpatient services to support your mental health. As part of this Cohort, a staff from suicide prevention will be in contact to offer assistance with the transition from the hospital. She has also been referred to [facility] A referral was submitted to request housing support to [place]. The SPO coordinator Mekhi Crowley will be in contact with you. E. Disposition. Antonia is discharged to the home of her mother and with the support of her aunt Karsten. F. Substance abuse followup is not indicated. HOSPITAL COURSE: Part A: Chief Complaint: The patient is unable to verbalize anything due to deep sedation; however, she was extremely agitated, paranoid, and aggressive in the emergency room. This 22-year-old female with no known history of treatment in the past came to the emergency room accompanied by her aunt and uncle due to a sudden change in her mental status ranging from being confused and agitated to aggressive. At the time of evaluation, she was extremely sedated from her stat medication that she received in the emergency room, but the review of the ED report indicates that the patient was acting confused or responding to some unseen stimuli. She was very fearful to come into the emergency room. She was also fearful to come into her room, rather she stayed outside in the waiting area. She was very fearful to go inside because of the demons in there. Her aunt and uncle also reported the same thing that for the last 3 nights Antonia is not sleeping rather fighting with the demons and trying to get them out of the house. She was doing the exact same thing in the emergency room. At one point, ED doctors had to give her 2 mg of lorazepam and 20 mg of Geodon IM to control her agitation and aggression. At this point, she is deeply sedated. We did try to get her vital signs, but she would not allow. Finally, the vital signs were taken, which appears to be low blood pressure. Her blood pressure at this time is 83/ 58, pulse rate varies between 75 to 110, breathing is shallow but normal, temperature is 98.2, O2 sat is 99% on room air. Hospitalist, Dr. Salazar was called. He advised to repeat the vital signs, which we did and did not have much difference except the pulse rate went up. I also called the lab to see if they have the blood. They said they did not have the blood, so they are on their way to obtain a blood and urine sample and other labs that were ordered in the emergency room. According to the patient's aunt and uncle, Antonia broke up with her boyfriend of 3 years and moved out of the apartment in the recent past and since then there was a change in her mental status. The rest of the history is unavailable because the patient is unable to provide any history and there are no family members available; however, collateral from aunt and uncle indicates that a month ago Antonia said she feels real spirits around her and sees relatives as well. Other than that, there is not much of a psychiatric history. Part B: Psychiatric treatment was rendered. Antonia was admitted to the Adult Behavioral Unit and placed on 15-minute checks for safety. She did well on the unit eventually, although she struggled for a long time feeling paranoid and afraid of everyone, often asking for reassurance, in fact asking for reassurance so often that it became difficult to understand what she was afraid of. Eventually toward the end of her stay, she interacted with peers well. She did tolerate medication additions. We started with Zyprexa and attempted to transition her to have an Abilify injection as I believed there was a larger mood component to her illness. We were monitoring her mood and behavior and working with her family. On 10/04/18, we increased the dose of p.r.n. Zyprexa and added Ativan to her PRNs. On 10/05/18, we pursued treatment over objection and a 2PC status. On 10/06/18, we added Abilify for the morning medications in order to plan to inject with Aristada and Aristada Initio, should treatment objection be obtained which it was. On 10/07/18, we attempted to administer Initio Aristada 882 and 30 mg of aripiprazole. A test could not be obtained because a blood sample was not obtained and that slowed the process of administering the Aristada. Over that weekend, Aristada was administered with great distress on Antonia's part. She had to be restrained. She did not remember that we had discussed her receiving an injectable. On 10/08/18, Aristada Initio, Aristada 882, and 30 mg of aripiprazole oral were administered over the weekend and we were waiting for improvement. On 10/14/18 , we noted that Antonia improved at a very slow and incomplete pace. We began Zyprexa 10 mg b.i.d. orally. She is beginning to improve more rapidly. Antonia is eager to leave and we have targeted discharge date of . 10/17/18, the discharge date of is less likely as Antonia has made it clear that she will probably not be taking Zyprexa outpatient. We are switching to Latuda today doing a rapid up taper and phasing out Zyprexa. On 10/19/18, the rapid transition to Latuda failed. She is now on Latuda 40 and Zyprexa 10 mg at bedtime. She has now tried Risperdal, Zyprexa, Aristada Initio, Aristada and Latuda. She also received Geodon injection in the ER. We will consider the current medication array until discharge and suggest a new plan to reduce the number of antipsychotics she is currently taking. On , a family meeting was difficult as the discharge plan changed at what felt like the last minute to the family, yet we retained the plan for 10/21/18. We did try to change Antonia from taking a total of 20 mg of Zyprexa to taking Latuda. We did not have a lot of time. The rapid taper titration up was unsuccessful as she got a terrible headache and refused to take a higher dose of Latuda again. The olanzapine is not the best idea for Antonia. She has gained between 9 and 12 pounds on her stay on the unit and complains of being hungry all the time. Nevertheless, she is tolerating the medication well. I was considering using Vraylar for her, but that is not available on our formulary. Antonia's labs looked quite good. Her hemoglobin A1c is 5.4. Her triglycerides are 51, cholesterol was 133, LDL cholesterol was 58, HDL cholesterol was 65, and her TSH was 0.81. These labs were done on 10/08/18. We had many meetings with her family. Her mother Mercedez is very concerned about her, but is also not well equipped to care for Antonia due to mental illness. Her aunt Karsten is better equipped emotionally and financially, but is unable to care for her due to constraints on her own life. Antonia was discharged home to her mother. She was considered stable enough as she had housing and food and access to medications to leave. Antonia was incredibly dysphoric when she was on the unit toward the end of her stay, almost begging to leave the unit and forcing smiles and being overly compliant. It was considered that if Antonia stayed over the weekend she could decompensate due to her inability to cope with being in the hospital any longer. Indeed, she did stay 20 days. There were no consults entered for Antonia, although she did have specific needs regarding nutrition. She is much improved over when she arrived here at the hospital. She struggled significantly to maintain her composure and also struggled to get well, but in the end although she appeared shaky, she was also not psychotic and not a danger to herself upon discharge. POLINA PARRISH, MERRY [id number]/[facility] #: [id number] MARLON
--- NOTE | 2018-12-15 13:27 | HP ---
ADDENDUM TO HISTORY AND PHYSICAL Note: The original history and physical was dictated by Dr. Sobeida Forrest. The date of that dicta tion was 10/01/2018 and it was transcribed that same day. DATE OF ADMISSION: 10/01/2018. PAST MEDICAL HISTORY: Significant only for constipation. REVIEW OF SYSTEMS: The patient denied headache or double vision. She denied sore throat, cough, millie st pain, difficulty breathing, abdominal pain, nausea, vomiting, diarrhea, or constipation. She mya ed difficulty ambulating, enlarged lymph nodes, fevers, rashes, or changes in weight. PHYSICAL EXAMINATION VITAL SIGNS: Blood pressure 130/88, heart rate 100, respiratory rate 20, temperature 99.0 degrees Fa hrenheit, oxygen saturation 99 percent on room air. HEENT: Head normocephalic, atraumatic. NECK: Supple. CHEST: Clear to auscultation bilaterally. CARDIAC: Exam reveals normal heart sounds. ABDOMEN: Soft and nontender. SKIN: Warm and dry. MUSCULOSKELETAL: Exam reveals no sign of edema. NEUROLOGIC: She is grossly intact with no focal deficits. MENTAL STATUS EXAMINATION: The patient is a young, white female, dressed in hospital scrubs who jonathan ears sedated, confused and agitated at times, somewhat uncooperative. Speech is slurred. Mood appea rs to be agitated with a labile affect. Thought process is disorganized. Thought content significan t for fear of demons. She is denying suicidal or homicidal ideations. She does appear to be respond ing to internal stimuli. Insight and judgment are markedly impaired given her agitated and destructi ve behavior. Cognitively, she is sedated likely secondary to stat medications. [id number]/[facility] #: [id number]
== END 2018-10-21 16:30 | disposition home or self-care (01) | DRG 750 ==
LOC: ED 08:08 → BSU 10:12
PROVIDERS: ADMIT Psychiatry & Neurology Psychiatry; ATTEND Psychiatry & Neurology Psychiatry
DX: F20.9 Schizophrenia, unspecified (principal); Z62.812 Personal history of neglect in childhood; Z81.8 Family history of other mental and behavioral disorders; Z78.1 Physical restraint status
CPT/HCPCS: 36415; 80053; 80061; 80307; 81003; 81015; 83036; 84443; 84702; 85025; 99222; 99231; 99232; 99233; 99238; 99285; A9270-GY; J2060; J3486

== ENCOUNTER 2019-01-19 13:30 | Inpatient (IN) | payer OTHER ==
[2019-01-19 14:38] LABS: ABS Basophils 0.1 10^3/ul (0-0.2); ABS Eosinophils 0.1 10^3/ul (0-0.6); ABS Lymphocytes 1.8 10^3/ul (1.0-4.8); ABS Monocytes 0.3 10^3/ul (0-0.8); ABS Neutrophils 5.5 10^3/ul (1.5-7.7); Eosinophil % 0.8 %; Hematocrit 38 % (35-47); Hemoglobin 12.5 g/dL (12.0-16.0); Mean Corpuscular HGB Conc 33 g/dL (31-36); Mean Corpuscular Hemoglobin 27 pg (27-31); Mean Corpuscular Volume 82 fL (80-97); Mean Platelet Volume 8.7 fL (7.4-10.4); Platelet Count 301 10^3/uL (150-450); Red Blood Count 4.61 10^6 /uL (3.70-4.87); Red Cell Distribution Width 16 % (10-15); White Blood Count 7.7 10^3/uL (3.5-10.8)
[2019-01-19 15:00] LABS: ALT 9 U/L (7-52); AST 15 U/L (13-39); Albumin 4.5 g/dL (3.2-5.2); Albumin/Globulin Ratio 1.5 (1-3); Alkaline Phosphatase 51 U/L (34-104); Anion Gap 5 mmol/L (2-11); BUN/Creatinine Ratio 17.4 (8-20); Blood Urea Nitrogen 12 mg/dL (6-24); CO2 Carbon Dioxide 26 mmol/L (22-32); Calcium 9.6 mg/dL (8.6-10.3); Chloride 108 mmol/L (101-111); EGFR Non-African American 107.4 (>60); Globulin 3.1 g/dL (2-4); Glucose 97 mg/dL (70-100); Sodium 139 mmol/L (135-145); Total Protein 7.6 g/dL (6.4-8.9)
--- NOTE | 2019-01-19 15:07 | ED ---
Psychiatric Complaint - HPI Summary HPI Summary: Patient is a 23-year-old female with a past medical history of bipolar disorder with psychosis who comes in today with a chief complaint of "feeling more depressed recently". She states recently she's been having suicidal ideation and thoughts of hurting herself. She states she does not have a plan. She states that "her body feels terrible and she feels so tired and "She currently had a medication change but does not credit her symptoms today with this change. She lives at home with mom and sees a counselor recommended regularly. She states that seeing a counselor does help with her symptoms but is seeking further help today. She denies past attempts at suicide or self-harm. Patient endorses difficulty sleeping and loss of appetite recently. Patient patient denies any physical pain, fever, chest pain , shortness breath, abdominal pain, pain with urination. - History Of Current Complaint Chief Complaint: EDMentalHealth Time Seen by Provider: 01/19/19 13:40 Hx Obtained From: Patient, Family/Passementerie Worker - Mother and counselor present Hx Last Menstrual Period: 03/11/16 Onset/Duration: Other - This is a chronic problem Timing: Constant Severity Initially: Moderate Severity Currently: Moderate Character: Depressed Aggravating Factor(s): Recent Stress Alleviating Factor(s): Counseling Associated Signs And Symptoms: Positive: Sleep Disturbance - Endorses difficulty sleeping for the last few days, Appetite Change - Endorses decreased appetite over the last few days Related History: Positive For: Prior Psychiatric Issues - Bipolar disorder with psychosis Has Suicidal: Reports: Thoughts. Denies: With A Plan, Demonstrates Gesture, Has Prior Attempt(s) Has Homicidal: Denies: Thoughts Recent Stressor(s): "life" - Risk Factor(s) Completed Suicide Risk Factors: Negative - Allergies/Home Medications Allergies/Adverse Reactions: Allergies Allergy/AdvReac Type Severity Reaction Status Date / Time No Known Allergies Allergy Verified 01/19/19 13:36 Home Medications: Home Medications ARIPiprazole [Aripiprazole] 20 mg PO DAILY 01/19/19 [History Confirmed 01/19/19] cloNIDine TAB* [Catapres 0.1 MG TAB*] 0.1 mg PO BID PRN MDD 2 tabs 01/19/19 [ History Confirmed 01/19/19] PMH/Surg Hx/FS Hx/Imm Hx GI History: Reports: Other GI Disorders - bloating/feeling of fullness, pain Sensory History: Denies: Hx Contacts or Glasses, Hx Hearing Aid Opthamlomology History: Denies: Hx Contacts or Glasses Psychiatric History: Reports: Hx Anxiety, Hx Depression, Hx Panic Disorder, Hx Post Traumatic Stress Disorder, Hx Community Mental Health Tx - therapy in adolescence when parents Denies: Hx Inpatient Treatment, Hx of Violent Episodes Against Others - Surgical History Surgery Procedure, Year, and Place: Had an endoscopy years ago, normal results. Infectious Disease History: No Infectious Disease History: Denies: Traveled Outside the [place] in Last 30 Days - Family History Known Family History: Positive: Other - Schizophrenia, mother Negative: Cardiac Disease, Hypertension, Diabetes - Social History Alcohol Use: None Alcohol Amount: "not a lot" Substance Use Type: Reports: None Substance Use Comment - Amount & Last Used: occasional use Smoking Status (MU): Never Smoked Tobacco Review of Systems Constitutional: Negative Eyes: Negative Cardiovascular: Negative Respiratory: Negative Gastrointestinal: Negative Genitourinary: Negative Skin: Negative Neurological: Negative Positive: Depressed All Other Systems Reviewed And Are Negative: Yes Physical Exam Triage Information Reviewed: Yes Vital Signs On Initial Exam: Initial Vitals Temp Pulse Resp BP Pulse Ox 98.4 F 82 15 128/83 100 01/19/19 13:32 01/19/19 13:32 01/19/19 13:32 01/19/19 13:32 01/19/19 13:32 Vital Signs Reviewed: Yes Appearance: Positive: Well-Appearing, No Pain Distress, Well-Nourished Skin: Positive: Warm, Skin Color Reflects Adequate Perfusion Head/Face: Positive: Normal Head/Face Inspection Eyes: Positive: Normal, EOMI ENT: Positive: Hearing grossly normal Respiratory/Lung Sounds: Positive: Clear to Auscultation, Breath Sounds Present Cardiovascular: Positive: Normal, RRR, S1, S2 Abdomen Description: Positive: Nontender Bowel Sounds: Positive: Present Neurological: Positive: Normal Gait, Speech Normal Psychiatric: Positive: Affect/Mood Appropriate - Flat affect, poor eye contact during, Depressed AVPU Assessment: Alert - the interview. Procedures - Sedation Patient Received Moderate/Deep Sedation with Procedure: No Diagnostics - Vital Signs Vital Signs Temp Pulse Resp BP Pulse Ox 01/19/19 13:32 98.4 F 82 15 128/83 100 - Laboratory Lab Results: Lab Results 01/19/19 Range/Units 14:31 WBC 7.7 (3.5-10.8) 10^3/uL RBC 4.61 (3.70-4.87) 10^6 /uL Hgb 12.5 (12.0-16.0) g/dL Hct 38 (35-47) % MCV 82 (80-97) fL MCH 27 (27-31) pg MCHC 33 (31-36) g/dL RDW 16 H (10-15) % Plt Count 301 (150-450) 10^3/uL MPV 8.7 (7.4-10.4) fL Neut % (Auto) 71.7 % Lymph % (Auto) 23.0 % Gilmer % (Auto) 3.8 % Eos % (Auto) 0.8 % Baso % (Auto) 0.7 % Absolute Neuts (auto) 5.5 (1.5-7.7) 10^3/ul Absolute Lymphs (auto) 1.8 (1.0-4.8) 10^3/ul Absolute Monos (auto) 0.3 (0-0.8) 10^3/ul Absolute Eos (auto) 0.1 (0-0.6) 10^3/ul Absolute Basos (auto) 0.1 (0-0.2) 10^3/ul Absolute Nucleated RBC 0.0 10^3/ul Nucleated RBC % 0.0 Result Diagrams: 01/19/19 14:31 01/19/19 14:31 Lab Statement: Any lab studies that have been ordered have been reviewed, and results considered in the medical decision making process. Course/Dx - Course Course Of Treatment: Patient was evaluated in the emergency department for the chief complaint of suicidal ideation and feeling depressed. Patient was seen and evaluated. Patient was met with staff upon arrival to the emergency room she was placedfrom for evaluation. Patient was change in up describes, a urinalysis was obtained and blood work was obtained. Lab results were unconcerning and showed no signs of acute medical problems. The patient was cleared for mental health evaluation. During her stay in the emergency department she was on constant observation and her mother and counselor were in the room. After medical clearance she was sent to the ED annex for evaluation. Patient was seen by Dr. Viera (psychiatrist) and will be admitted to the behavioral health unit as a voluntary admission with a diagnosis of bipolar disorder. Patient was stable and well mannered during her time in the emergency department. She made no gestures of self-harm on the emergency department. Patient was under observation during her entire time in the emergency department. - Differential Dx/Clinical Impression Differential Diagnosis/HQI/PQRI: Positive: Acute Psychosis, Anxiety, Bipolar Disorder, Depression, Suicidal Ideation Provider Diagnosis: Bipolar disorder, unspecified - Physician Notifications Discussed Care Of Patient With: Waldemar Knapp - psychiatrist Time Discussed With Above Provider: 16:58 Instructed by Provider To: Admit As Inpatient - Voluntary mental health admission Patient Is Medically Stable For: Psych Evaluation Admit/Transition Orders Completed By ED Provider: No Discharge ED - Sign-Out/Discharge Documenting (check all that apply): Patient Departure - Discharge Plan Condition: Stable Disposition: ADMITTED TO [facility] - Billing Disposition and Condition Condition: STABLE Disposition: Admitted to [facility] - Attestation Statements Provider Attestation: pt seen by midlevel provider independently, based on their assessment, it was not necessary to present the case to me but I was available for consultation. I did not form a physician-patient relationship with the patient. The chart however, has been reviewed. am signing this note strictly in an administrative capacity.
[2019-01-19 15:15] LABS: Urine Appearance Clear; Urine Bacteria Absent (Absent); Urine Bilirubin Negative (Negative); Urine Blood 3+ (Negative); Urine Color Yellow; Urine Glucose Negative (Negative); Urine Ketones Negative (Negative); Urine Nitrite Negative (Negative); Urine Protein Negative (Negative); Urine Red Blood Cell 2+(6-10/hpf) (Absent); Urine Specific Gravity 1.016 (1.010-1.030); Urine Squamous Epithelial Cell Present (Absent); Urine Urobilinogen Negative (Negative); Urine White Blood Cell Absent (Absent)
[2019-01-19 15:18] LABS: Urine Benzodiazepine Screen None Detected (None Detect); Urine Opiates Screen None Detected (None Detect)
[2019-01-19 15:20] LABS: Acetaminophen < 15 mcg/mL; Alcohol < 10 mg/dL (<10); Salicylate < 2.50 mg/dL (<30)
[2019-01-19 15:35] LABS: TSH (Thyroid Stimulating Horm) 0.94 mcIU/mL (0.34-5.60)
[2019-01-19] MEDS ORDERED: Al Hydrox/Mg Hydrox/Simet LIQ* 30 ML UDC PO PRN (20:17)
[2019-01-19] MEDS ORDERED: Acetaminophen TAB* 325 MG PO PRN (20:17)
[2019-01-19] MEDS ORDERED: cloNIDine TAB* 0.1 MG PO PRN (20:18)
[2019-01-20] MEDS ORDERED: ARIPiprazole TAB* 20 MG PO SCH (09:00)
[2019-01-20] MEDS ORDERED: Multivitamins/Minerals TAB PO SCH (09:00)
[2019-01-20 09:08] VITALS: BP 121/69
[2019-01-20] MEDS ORDERED: LORazepam TAB(*) 0.5 MG ONE (11:09)
[2019-01-20] MEDS ORDERED: LORazepam TAB(*) 0.5 MG PO ONE ×2 (11:49→12:00)
--- NOTE | 2019-01-20 22:08 | HP ---
CC: Tania Earl * HISTORY AND PHYSICAL AND DISCHARGE SUMMARY: DATE OF ADMISSION: 01/19/19 DATE OF DISCHARGE: 01/20/19 PROVIDER: Polina Esqueda NP, in Psychiatry. SUPERVISING PHYSICIAN: Thomas Macedo MD * (DICTATED BY POLINA ESQUEDA NP ) JUSTIFICATION FOR ADMISSION: The patient is in need of 24-hour supervision and care secondary to suicidal ideation and self-injurious behavior. CHIEF COMPLAINT: "Restlessness was getting to me... I was getting overwhelmed. " HISTORY OF PRESENT ILLNESS: The patient is a 23-year-old single, female with a history of bipolar I disorder, most recent episode depressed, who arrives brought in by family and is here on a voluntary status following her inner feeling of physical restlessness that has been going on for months and became worse and made her feel overwhelmed and as if she wanted to because she could not take it any longer. Antonia was admitted to the behavioral sciences unit in September and was there for a long stay into the month of October. At that time, she was experiencing a mood episode as well as psychosis and received the diagnosis of bipolar I disorder, current episode mixed with psychotic features. At this time, she is depressed. She feels quite miserable due to what she terms restlessness that would be more accurately described as akathisia. Antonia seems to have established a relatively happy or content life living with her mom and working on and off at [employer], but not enjoying it the job. She also recently received a Section 8 voucher, which promises that she will be living on her own soon, which is very appealing to her. She is having a hard time sleeping. She is irritable and she feels bad in general and she feels bad about feeling bad. Her energy is lower. She cannot concentrate. She feels apathetic. She is constantly, when she is seated, moving her legs gently up and down or touching them with fist against her thighs. PAST PSYCHIATRIC HISTORY: She has been admitted here once at [facility] for psychiatric reasons from 10/01/18 until 10/21/18. She is currently taking Abilify 20 mg and clonidine 0.1 mg b.i.d. She says she does not hate it , but she also is quite unhappy and she has not made the connection that Abilify is most likely the agent causing her to feel such akathisia that it is causing her to want to end her life. PAST MEDICAL HISTORY: Significant only for constipation. It should be noted that while she was in the hospital in September and October, she was administered Risperdal, Geodon, Abilify Maintena, Latuda, and olanzapine as well as Ativan. FAMILY HISTORY: Mom has schizophrenia. Dad has anxiety and in anger management problem. SUBSTANCE ABUSE HISTORY: Denied. She does not smoke. She does not drink alcohol. She does not use drugs. SOCIAL HISTORY: She was born in [place], but immigrated here when she was a child. She graduated from [employer] and has not gone to college. 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 She does not know what else she wants to do. She is currently living with her mother. That is an acceptable situation, but it is more desirable for her to live on her own as her mother is quite psychiatrically ill and causes Antonia some anxiety. She did recently get a Section 8 voucher. She anticipates that in the next 2 to 3 months, she will be finding her own place to live. She has no history. She has no legal problems. REVIEW OF SYSTEMS: The patient reports feeling fatigued. She denies shortness of breath, heat or cold intolerance, chest pain, or abdominal pain. She denies neurological symptoms. She denies fevers or changes in weight. PHYSICAL EXAMINATION VITAL SIGNS: On 01/20/19, at 0800, temperature is 99.1, pulse 86, respirations 16, O2 sat on room air 100%, blood pressure 121/69. GENERAL APPEARANCE: Well appearing, no pain, distress, well nourished. HEAD AND FACE: Normal head and face inspection. Eyes: Normal EOMI. ENT: Hearing grossly intact. LUNGS: Respirations, lung sounds clear to auscultation. Breath sounds present. CARDIOVASCULAR: Normal RRR. S1, S2 present. ABDOMEN: Description is nontender. Bowel sounds present. NEUROLOGICAL: Normal gait. Speech normal. SKIN: Warm. Skin color reflects adequate perfusion. MENTAL STATUS EXAM: Antonia is approximately 5 feet 4 inches and weighs 155 pounds. She has long dark hair and is an attractive young woman. Her grooming is good. She is indeed restless, moving her legs while we were sitting and pacing when we were not talking and she is on her own. She is calm and cooperative, though she appears very sad and she seems to struggle to make eye contact. Her speech has a normal tone, rate, and volume. She is dysthymic. She has a restricted affect. Her thought processes are normal. Her thought content is free of delusions. She is no longer suicidal, although she was at admission. She is not homicidal. She is not hallucinating. Her insight is good. Her judgment is good. She is alert and oriented x4. LABORATORY DATA: Most data are within normal limits exceptions include RDW high at 16. It should be noted that her hemoglobin A1c on 10/08/18 was 5.4. Her triglycerides were 51, cholesterol 133, LDL cholesterol 58, HDL cholesterol 65. On 01/19/19, her TSH was normal at 0.94. Urine contained 3+ blood, 2+ rbc' s, and present urine squamous epithelial cells. Her toxicology screen shows no drugs of abuse. DIAGNOSIS: Bipolar I disorder, current episode depressed. IMPRESSION: Antonia is a 23-year-old single female who comes to the hospital after becoming extremely depressed by the phenomenon of akathisia, which she did not understand could be helped and in that context, she wanted to end her life. PLAN: The patient is admitted to the adult behavioral health unit and placed on q.15 minute checks for her own safety. She is encouraged to participate in supportive milieu, individual, and group therapies. Her estimated length of stay is 1 to 3 days. We will titrate medications to efficacy and monitor for mood and thought content. Discharge planning will include family involvement and outpatient providers. CONDITION AT THE TIME OF DISCHARGE: Antonia is improved. She is psychiatrically cleared and stable. She did not participate in groups, but she was mildly social with peers. Her uncle agrees to pick her up and is agreeable to discharge. Antonia is eager for discharge. She has done well here psychiatrically. She tolerated the addition of Ativan well and it will be converted to Klonopin in the outpatient setting. She will be following up with Rajat. MENTAL STATUS EXAM: At the time of discharge, Antonia is calm, cooperative, and makes good eye contact, which is much improved over admission. She is alert and oriented x4. Her grooming remains good. Her speech pace is normal. Her thought processes are logical. She is not psychotic or delusional. She denies AH, VH, SI, and HI. Her insight and judgment are both good. She is willing to follow up and she is urged to see a therapist and consult with her nurse practitioner. DISCHARGE INSTRUCTIONS TO THE PATIENT: A: Medications: 1. Aripiprazole 20 mg daily. 2. Clonidine 0.1 mg b.i.d. 3. Clonazepam 1 mg p.o. t.i.d. p.r.n. akathisia/restlessness, maximum daily dose is 3 mg. It should be noted that Antonia was advised strongly not to make taking Klonopin a permanent habit, in fact she was noted to agree that she did not want to endure addiction or tolerance or dependence issues. She was eager to solve the problem, which likely stems from aripiprazole and its tendency to cause akathisia. She was encouraged to take as little clonazepam as possible, so she was encouraged to take only 2, and a third if she needed it, daily. B: Diet is regular. C: Activity is as tolerated. Antonia is a nonsmoker. There are no studies pending at the time of discharge. D: Followup care: She has an appointment on 01/26/19 with Rajat. Her team at [facility] has been notified of her visit here and her paperwork will be sent to them so they understand what has happened. E: Disposition: She is being discharged home to her apartment with her mother. F: Substance abuse followup is not indicated. HOSPITAL COURSE: Psychiatric treatment was rendered. Antonia was admitted to the adult behavioral health unit and placed on 15-minute checks for her own safety. She did well on the unit in that she was comfortable enough to ask questions and acquire things she needed. She tended not to go to groups, but she was on the unit for a very short time. She interacted with peers appropriately. When we met, it was quickly ascertained that she was experiencing akathisia. We started with 0.5 mg of Ativan, which when I checked in about half an hour later was somewhat better. She felt slightly less restless and she stated that her brain felt more relaxed. Another 0.5 mg of Ativan administered. She stated she felt significantly better and when I asked which she liked to be on 0.5 or 1 mg going forward, she indicated that 1 mg was much more satisfactory and that that is what she would like to continue with in the outpatient setting. Because Ativan has a short half life, we switched to Klonopin. She is advised to take it twice in a day, perhaps at 8 in the morning and 4 in the afternoon. She is offered an additional dose of Klonopin daily in case her akathisia is worse that day. She is also offered [facility] if there is another medication she can use that will not cause such severe akathisia. I did briefly meet with her uncle, who is in support of her coming home. No consults were entered for her. She is much improved. When I met with her at first, she immediately stated to me "I have made a mistake, I don't need to be here." She also entered her 72-hour notice. Thus working with Antonia's intention to take care of herself and make her own paths forward, we agree to discharge her in the early afternoon on 01/20/19. Her suicidal thoughts went away with at least partial resolution of her restless feelings. She was offered education regarding the source of that restlessness and she was very appreciative and relieved. Her eye contact improved. She offered some smiles and was eager to go home. POLINA ESQUEDA, MERRY [id number]/[facility] #: [id number] MARLON
== END 2019-01-20 13:30 | disposition home or self-care (01) | DRG 753 ==
LOC: ED 13:30 → BSU 18:05
PROVIDERS: ADMIT Psychiatry & Neurology Psychiatry; ATTEND Psychiatry & Neurology Psychiatry
DX: F31.30 Bipolar disorder, current episode depressed, mild or moderate severity, unspecified (principal); R45.851 Suicidal ideations; F43.10 Post-traumatic stress disorder, unspecified; F41.0 Panic disorder [episodic paroxysmal anxiety]; G25.71 Drug induced akathisia; T43.595A Adverse effect of other antipsychotics and neuroleptics, initial encounter; Y92.9 Unspecified place or not applicable; Z79.899 Other long term (current) drug therapy
CPT/HCPCS: 36415; 80053; 80307; 80320; 80329; 81003; 81015; 84443; 85025; 99238; 99284; A9270-GY; G0480